=== PATIENT | male | born 1985 | race Caucasian/White ===

== ENCOUNTER 2018-04-09 17:20 | Emergency (ER) | payer OTHER ==
[2018-04-09 18:12] LABS: BASO % 0.1 % (0.0-1.0); EOS % 0.3 % (0.0-3.0); HEMATOCRIT 52.7 % (42.0-52.0); HEMOGLOBIN 18.3 g/dl (13.5-17.5); IMMATURE GRANULOCYTE % 0.3 % (0-3.0); LYMPH # 2.2 10^3/uL (1.5-4.5); LYMPH % 15.1 % (24.0-44.0); MEAN CORPUSCULAR HEMOGLOBIN 30.7 pg (27.0-33.0); MEAN CORPUSCULAR HGB CONC 34.7 g/dl (32.0-36.5); MEAN CORPUSCULAR VOLUME 88.4 fl (80.0-96.0); MONO # 1.1 10^3/uL (0.0-0.8); MONO % 7.5 % (0.0-5.0); NEUTROPHILS # 11.4 10^3/uL (1.8-7.7); NEUTROPHILS % 76.7 % (36.0-66.0); PLATELET COUNT, AUTOMATED 375 10^3/uL (150-450); RED BLOOD COUNT 5.96 10^6/uL (4.30-6.10); RED CELL DISTRIBUTION WIDTH 11.9 % (11.5-14.5); WHITE BLOOD COUNT 14.8 10^3/uL (4.0-10.0)
[2018-04-09 18:30] LABS: ALBUMIN 3.8 GM/DL (3.2-5.2); ALBUMIN/GLOBULIN RATIO 0.86 (1.00-1.93); ALKALINE PHOSPHATASE 64 U/L (45-117); ALT/SGPT 56 U/L (12-78); AMYLASE 35 U/L (25-115); ANION GAP 10 MEQ/L (8-16); AST/SGOT 22 U/L (7-37); BILIRUBIN,DIRECT 0.3 MG/DL (0.0-0.2); BILIRUBIN,TOTAL 0.7 MG/DL (0.2-1.0); BLOOD UREA NITROGEN 28 MG/DL (7-18); CALCIUM LEVEL 9.4 MG/DL (8.5-10.1); CARBON DIOXIDE LEVEL 31 MEQ/L (21-32); CHLORIDE LEVEL 97 MEQ/L (98-107); CREATININE FOR GFR 1.19 MG/DL (0.70-1.30); GLOMERULAR FILTRATION RATE > 60.0 (>60); GLUCOSE, FASTING 111 MG/DL (70-100); LIPASE 71 U/L (73-393); POTASSIUM SERUM 4.6 MEQ/L (3.5-5.1); SODIUM LEVEL 138 MEQ/L (136-145); TOTAL PROTEIN 8.2 GM/DL (6.4-8.2)
[2018-04-09] MEDS: ONDANSETRON 4MG/2ML VIAL (J2405) IV ×2 (18:33→20:13)
[2018-04-09] MEDS: MORPHINE 2 MG/ML 1ML SYRINGE (J2270) IV ×2 (18:33→20:14)
[2018-04-09] MEDS: NS 1,000 ML IV (18:37)
[2018-04-09 19:18] LABS: LACTIC ACID SEPSIS PROTOCOL 1.2 MMOL/L (0.4-2.0)
[2018-04-09] MEDS: GASTROGRAFIN SOLUTION 30ML (Q9963) PO ×3 (19:27→20:29)
[2018-04-09] MEDS ORDERED: ISOVUE-370 76% 100ML VIAL (Q9967) As Ordered (19:37)
[2018-04-09 20:20] LABS: AMORPHOUS SEDIMENT RFX SMALL (NEGATIVE); KETONE, URINE AUTO RFX 1+ mg/dL (NEGATIVE); LEUKOCYTE ESTERASE UR AUTO RFX NEGATIVE (NEGATIVE); MUCUS, URINE RFX LARGE (NEGATIVE); NITRITE, URINE AUTO RFX NEGATIVE (NEGATIVE); RBC, URINE AUTO RFX 1 /HPF (0-3); SPECIFIC GRAVITY UR AUTO RFX 1.034 (1.002-1.035); SQUAM EPITHELIAL CELL UR AURFX 0 /HPF (0-6); WBC, URINE AUTO RFX 1 /HPF (0-3)
[2018-04-09] MEDS: CIPROFLOXACIN 500 MG TAB PO (21:51)
[2018-04-09] MEDS: metroNIDAZOLE (FLAGYL) 500 MG TAB PO (21:51)
== END 2018-04-09 21:56 | disposition home or self-care (01) ==
LOC: M ED 17:20
DX: K52.9 Noninfective gastroenteritis and colitis, unspecified (principal); I10 Essential (primary) hypertension; F10.10 Alcohol abuse, uncomplicated; K21.9 Gastro-esophageal reflux disease without esophagitis; F17.200 Nicotine dependence, unspecified, uncomplicated
CPT/HCPCS: Q9963

== ENCOUNTER 2020-12-27 10:04 | Emergency (ER) | payer OTHER ==
[~2020-12-27] VITALS: Ht 177.8 cm; Wt 132.6 kg
[~2020-12-27 10:04] MED LIST: CIPR1TAB20 PO; FLAG500T PO; HYDR-3715 PO
[2020-12-27] MEDS ORDERED: OMEP20TA9 PO (10:13)
[2020-12-27] MEDS ORDERED: IBUP200C33 PO (10:13)
[2020-12-27] MEDS ORDERED: CHLORTHALIDONE 25 MG TAB PO ONE (10:50)
[2020-12-27] MEDS ORDERED: CHLO125TA PO (10:53)
[2020-12-27 11:28] VITALS: BP 167/95
--- NOTE | 2020-12-28 00:57 | ECGEPIP ---
[facility] - ED Test Date: 2020-12-27 Pat Name: BELINDA ESCAMILLA Department: Room: - Gender: Male [employer]: : 1985 Requested By: Nichole Jade Order Number: [id number] Reading MD: Shane Diaz Measurements Intervals [place] Rate: 89 P: 35 ME: 154 QRS: 25 QRSD: 96 T: 32 QT: 354 QTc: 430 Interpretive Statements Normal sinus rhythm POSSIBLE PRIOR INFERIOR INFARCT NO PRIORS FOR COMPARISON Electronically Signed on 12-28-2020 0:57:31 EDT by Shane Diaz
== END 2020-12-27 11:35 | disposition home or self-care (01) ==
LOC: M ED 10:04
DX: I10 Essential (primary) hypertension (principal); K21.9 Gastro-esophageal reflux disease without esophagitis; F17.200 Nicotine dependence, unspecified, uncomplicated

== ENCOUNTER → 2021-12-07 | Outpatient (CLI) | payer OTHER ==
[~2021-12-07] MED LIST changes: +CHLO125TA PO; +DOCU100C16 PO; +HYDR25SU23 PR; +IBUP200C33 PO; +LISI10TA22 PO; +MAG100TA PO; +OMEP20TA2 PO; +POTA10CA32 PO
== END ==
LOC: M LABSMTC 10:36
PROVIDERS: ATTEND Anesthesiology
DX: Z01.812 Encounter for preprocedural laboratory examination (principal); Z20.822 Contact with and (suspected) exposure to COVID-19

== ENCOUNTER 2021-12-12 08:09 | Day surgery (SDC) | payer OTHER ==
[~2021-12-12] VITALS: Ht 177.8 cm; Wt 98.9 kg
[~2021-12-12 08:09] MED LIST changes: +NS 1,000 ML IV ONE
[2021-12-12] MEDS ORDERED: fentaNYL 100 MCG/2 ML INJECTION As Ordered ONE (09:26)
[2021-12-12] MEDS ORDERED: propofoL 500 MG/50 ML VIAL As Ordered ONE (09:28)
[2021-12-12] MEDS ORDERED: LIDOCAINE 2% 100MG/5ML SDV (FOR ANES.) As Ordered ONE (10:03)
[2021-12-12] MEDS ORDERED: propofoL 200 MG/20 ML VIAL As Ordered ONE (10:20)
[2021-12-12 11:03] VITALS: BP 130/77
== END 2021-12-12 11:05 | disposition home or self-care (01) ==
LOC: M SDC 08:09
PROVIDERS: ATTEND Surgery
DX: K92.1 Melena (principal); K29.30 Chronic superficial gastritis without bleeding; K64.1 Second degree hemorrhoids; K29.80 Duodenitis without bleeding; K22.89 Other specified disease of esophagus; K21.9 Gastro-esophageal reflux disease without esophagitis; F41.9 Anxiety disorder, unspecified; I10 Essential (primary) hypertension; Z79.899 Other long term (current) drug therapy
CPT/HCPCS: 43239; 45378; 88305; J3010

== ENCOUNTER 2023-05-29 16:10 | Emergency (ER) | payer OTHER ==
[~2023-05-29] VITALS: Ht 177.8 cm; Wt 96.6 kg
[~2023-05-29 16:10] MED LIST changes: -HYDR25SU23 PR; +HYDR25SU61 PR; -NS 1,000 ML IV ONE; -POTA10CA32 PO; +POTA10CA60 PO
[2023-05-29 16:11] VITALS: TEMP 97.6
[2023-05-29] MEDS ORDERED: LORazepam 2 MG TAB PO PRN (18:10)
[2023-05-29] MEDS ORDERED: NS 1,000 ML IV ONE (18:10)
[2023-05-29 18:30] LABS: BASO % 0.3 % (0.0-1.0); EOS % 0.5 % (0.0-3.0); HEMATOCRIT 38.2 % (42.0-52.0); LYMPH # 1.8 10^3/uL (1.5-5.0); LYMPH % 23.2 % (24.0-44.0); MEAN CORPUSCULAR HEMOGLOBIN 32.8 pg (27.0-33.0); MEAN CORPUSCULAR VOLUME 96.5 fl (80.0-96.0); MONO % 13.1 % (2.0-8.0); NEUTROPHILS # 4.9 10^3/uL (1.5-8.5); NEUTROPHILS % 62.6 % (36.0-66.0); PLATELET COUNT, AUTOMATED 151 10^3/uL (150-450); RED BLOOD COUNT 3.96 10^6/uL (4.30-6.10); WHITE BLOOD COUNT 7.8 10^3/uL (4.0-10.0)
[2023-05-29 19:00] LABS: PHENCYCLIDINE URINE NEGATIVE (NEGATIVE)
[2023-05-29 19:01] LABS: AMPHETAMINES LEVEL URINE NEGATIVE (NEGATIVE); BARBITURATES URINE NEGATIVE (NEGATIVE); BENZODIAZEPINES URINE NEGATIVE (NEGATIVE); CANNABINOIDS URINE NEGATIVE (NEGATIVE); COCAINE METABOLITE URINE NEGATIVE (NEGATIVE); METHADONE URINE NEGATIVE (NEGATIVE); OPIATES URINE NEGATIVE (NEGATIVE)
[2023-05-29 19:02] LABS: ETHYL ALCOHOL (ETHANOL) < 0.003 % (0.000-0.010)
[2023-05-29 19:03] LABS: RSV AMPLIFICATION NEGATIVE (NEGATIVE)
[2023-05-29 19:03] LABS: ACETAMINOPHEN LEVEL < 2.0 UG/ML (10.0-20.0)
[2023-05-29 19:04] LABS: ALBUMIN 4.4 G/DL (3.2-5.2); ALKALINE PHOSPHATASE 39 U/L (46-116); ALT/SGPT 95 U/L (7.0-40); AST/SGOT 72 U/L (<34); BILIRUBIN,DIRECT 0.4 MG/DL (<0.4); BILIRUBIN,TOTAL 1.1 MG/DL (0.3-1.2); BLOOD UREA NITROGEN 43 MG/DL (9-23); CALCIUM LEVEL 10.1 MG/DL (8.5-10.1); CARBON DIOXIDE LEVEL 29 MMOL/L (20-31); CHLORIDE LEVEL 96 MMOL/L (98-107); CREATININE FOR GFR 2.05 MG/DL (0.70-1.30); GLOMERULAR FILTRATION RATE 38.7 (>60); GLUCOSE, FASTING 96 MG/DL (60-100); POTASSIUM SERUM 4.9 MMOL/L (3.5-5.1); SALICYLATE LEVEL < 3.0 MG/DL (<30); SODIUM LEVEL 136 MMOL/L (136-145)
[2023-05-29] MEDS ORDERED: OXAZEPAM 15MG CAP PO ONE (19:05)
[2023-05-29 19:06] LABS: THYROID STIMULATING HORMONE 3.253 uIU/ML (0.55-4.78)
[2023-05-29 19:08] LABS: CPK CREATINE PHOSPHOKINASE 151 U/L (46-171)
[2023-05-29 20:00] VITALS: BP 136/70; O2SAT 96
[2023-05-29] MEDS ORDERED: THIAMINE 100 MG TAB PO SCH (21:00)
[2023-05-29] MEDS ORDERED: OXAZ30CA2 PO ×2 (21:49→22:18)
[2023-05-29] MEDS ORDERED: OMEP1CAP73 PO (22:08)
[2023-05-29] MEDS ORDERED: CHLO25TA PO (22:08)
[2023-05-29] MEDS ORDERED: HOME MED LIST COMPLETE! XX SCH (22:10)
[2023-05-30] MEDS ORDERED: FOLIC ACID 1MG TAB PO SCH (09:00)
[2023-05-30] MEDS ORDERED: MULTIVITAMINS/MINERALS THERAP 1 TAB PO SCH (09:00)
== END 2023-05-29 22:40 | disposition left against medical advice (07) ==
LOC: M ED 16:10
DX: R79.9 Abnormal finding of blood chemistry, unspecified (principal); R86.0 Abnormal level of enzymes in specimens from male genital organs; N17.9 Acute kidney failure, unspecified; F10.20 Alcohol dependence, uncomplicated; Z53.9 Procedure and treatment not carried out, unspecified reason; I10 Essential (primary) hypertension; Z79.899 Other long term (current) drug therapy

== ENCOUNTER 2025-03-01 18:42 | Inpatient (IN) | payer OTHER ==
[~2025-03-01] VITALS: Ht 175.3 cm; Wt 104.4 kg
[~2025-03-01 18:42] MED LIST changes: +CHLO25TA PO; +OMEP-611 PO; +OMEP1CAP73 PO; -OMEP20TA2 PO; +OXAZ30CA2 PO; -POTA10CA60 PO; +POTA10CA70 PO
[2025-03-01] MEDS: NS (Normal Saline) 0.9% 1,000 ML IV ONE (19:50)
[2025-03-01 19:56] LABS: BASO % 0.1 % (0.0-1.0); HEMATOCRIT 46.3 % (42.0-52.0); LYMPH # 0.7 10^3/uL (1.5-5.0); LYMPH % 4.9 % (24.0-44.0); MEAN CORPUSCULAR HEMOGLOBIN 32.9 pg (27.0-33.0); MEAN CORPUSCULAR HGB CONC 34.6 g/dl (32.0-36.5); MEAN CORPUSCULAR VOLUME 95.3 fl (80.0-96.0); MONO # 0.6 10^3/uL (0.0-0.8); MONO % 4.1 % (2.0-8.0); NEUTROPHILS # 13.7 10^3/uL (1.5-8.5); NEUTROPHILS % 90.4 % (36.0-66.0); PLATELET COUNT, AUTOMATED 268 10^3/uL (150-450); RED BLOOD COUNT 4.86 10^6/uL (4.30-6.10); WHITE BLOOD COUNT 15.2 10^3/uL (4.0-10.0)
[2025-03-01] MEDS: ONDANSETRON 4MG 2ML VIAL IV ONE (20:15)
[2025-03-01] MEDS: LORazepam 2 MG/ML 1ML VIAL IV STA (20:16)
[2025-03-01] MEDS: ACETAMINOPHEN *IV* 1,000 MG in IV 1 EA IV ONE (20:17)
[2025-03-01 20:19] LABS: ETHYL ALCOHOL (ETHANOL) < 0.003 % (0.000-0.010); LIPASE 38 U/L (12-53)
[2025-03-01 20:30] LABS: ALBUMIN 4.4 G/DL (3.2-5.2); ALKALINE PHOSPHATASE 43 U/L (40-129); ALT/SGPT 86 U/L (7.0-40); AST/SGOT 69 U/L (<34); BILIRUBIN,DIRECT 0.4 MG/DL (<0.4); BILIRUBIN,TOTAL 0.9 MG/DL (0.3-1.2); BLOOD UREA NITROGEN 47 MG/DL (9-23); CALCIUM LEVEL 9.6 MG/DL (8.5-10.1); CARBON DIOXIDE LEVEL 19 MMOL/L (20-31); CHLORIDE LEVEL 95 MMOL/L (98-107); CREATININE FOR GFR 4.67 MG/DL (0.70-1.30); GLOMERULAR FILTRATION RATE 15.3 (>60); GLUCOSE, FASTING 135 MG/DL (60-100); POTASSIUM SERUM 4.8 MMOL/L (3.5-5.1); SODIUM LEVEL 137 MMOL/L (136-145)
[2025-03-01] MEDS ORDERED: LISI20TA33 PO (20:45)
[2025-03-01] MEDS ORDERED: NALT50TA4 PO (20:46)
[2025-03-01] MEDS: [UNRECOGNIZED DRUG - OTHER] IV ONE (21:10)
[2025-03-01] MEDS: NS 0.9% IV ONE (21:10)
[2025-03-01] MEDS: PIPERACILLIN/TAZOBACTAM SOD 4.5 GM in DEXTROSE 5% (D5W) ADV/MINI-BAG 50 ML IV ONE (21:10)
[2025-03-01] MEDS ORDERED: HOME MED LIST COMPLETE! XX SCH (21:15)
[2025-03-01 21:44] LABS: VENOUS HCO3 15.7 MMOL/L (23.0-27.0); VENOUS O2 SATURATION 88.4 % (60.0-80.0); VENOUS PARTIAL PRESSURE CO2 34.5 mmHg (38.0-50.0); VENOUS PARTIAL PRESSURE O2 63.4 mmHg (30.0-50.0); VENOUS PH 7.277 UNITS (7.330-7.430); VENOUS STANDARD HCO3 16.5 MMOL/L; VENOUS TOTAL CO2 16.8 MMOL/L (24.0-28.0)
[2025-03-01 23:12] LABS: ACETONE/KETONE 4.22 MMOL/L (0.02-0.27)
[2025-03-01 23:56] LABS: KETONE, URINE AUTO RFX TRACE mg/dL (NEGATIVE); MUCUS, URINE RFX SMALL (NEGATIVE); NITRITE, URINE AUTO RFX NEGATIVE (NEGATIVE); RBC, URINE AUTO RFX 2 /HPF (0-3); SQUAM EPITHELIAL CELL UR AURFX 1 /HPF (0-6); WBC, URINE AUTO RFX 3 /HPF (0-3)
[2025-03-01 23:59] LABS: LEUKOCYTE ESTERASE UR AUTO RFX TRACE (NEGATIVE)
[2025-03-02] MEDS ORDERED: HEPARIN SOD 5000UNITS/ML 1ML VIAL/SYRINGE SC SCH (00:10)
[2025-03-02] MEDS ORDERED: LORazepam 2 MG TAB PO PRN ×2 (00:10→00:30)
[2025-03-02] MEDS ORDERED: ACETAMINOPHEN 325 MG TAB PO PRN ×2 (00:10→00:30)
[2025-03-02] MEDS ORDERED: ONDANSETRON 4MG 2ML VIAL IV PRN (00:40)
[2025-03-02] MEDS: NS (Normal Saline) 0.9% 1,000 ML IV SCH ×2 (01:02→11:36)
[2025-03-02] MEDS: NS (Normal Saline) 0.9% 1,000 ML IV ONE (03:52)
[2025-03-02] MEDS: PIPERACILLIN/TAZOBACTAM SOD 4.5 GM in DEXTROSE 5% (D5W) ADV/MINI-BAG 50 ML IV SCH (04:06)
[2025-03-02] MEDS: HEPARIN SOD 5000UNITS/ML 1ML VIAL/SYRINGE SC SCH (05:41)
[2025-03-02] MEDS: MULTIVITAMINS/MINERALS THERAP 1 TAB PO SCH (07:29)
[2025-03-02] MEDS: DOCUSATE SODIUM 100MG CAPSULE PO SCH (07:29)
[2025-03-02] MEDS: THIAMINE 100 MG TAB PO SCH (07:29)
[2025-03-02] MEDS: OMEPRAZOLE 20MG CAP PO SCH (07:29)
[2025-03-02] MEDS: FOLIC ACID 1MG TAB PO SCH (07:29)
[2025-03-02 08:01] LABS: BASO % 0.1 % (0.0-1.0); EOS % 0.3 % (0.0-3.0); HEMATOCRIT 32.5 % (42.0-52.0); LYMPH # 1.1 10^3/uL (1.5-5.0); LYMPH % 11.7 % (24.0-44.0); MEAN CORPUSCULAR HEMOGLOBIN 32.3 pg (27.0-33.0); MEAN CORPUSCULAR HGB CONC 34.2 g/dl (32.0-36.5); MEAN CORPUSCULAR VOLUME 94.5 fl (80.0-96.0); MONO # 1.1 10^3/uL (0.0-0.8); MONO % 11.1 % (2.0-8.0); NEUTROPHILS # 7.4 10^3/uL (1.5-8.5); NEUTROPHILS % 76.3 % (36.0-66.0); PLATELET COUNT, AUTOMATED 172 10^3/uL (150-450); RED BLOOD COUNT 3.44 10^6/uL (4.30-6.10); WHITE BLOOD COUNT 9.8 10^3/uL (4.0-10.0)
[2025-03-02 08:06] LABS: HEMOGLOBIN 11.1 g/dl (13.5-17.5)
[2025-03-02 08:23] LABS: ALBUMIN 3.2 G/DL (3.2-5.2); BILIRUBIN,TOTAL 0.6 MG/DL (0.3-1.2); CALCIUM LEVEL 7.4 MG/DL (8.5-10.1); CREATININE FOR GFR 3.39 MG/DL (0.70-1.30); GLOMERULAR FILTRATION RATE 22.4 (>60); TOTAL PROTEIN 5.9 G/DL (5.7-8.2)
[2025-03-02] MEDS: NALTREXONE 50 MG TAB PO SCH (08:45)
[2025-03-02] MEDS ORDERED: FOLIC ACID 1MG TAB PO SCH (09:00)
[2025-03-02] MEDS ORDERED: THIAMINE 100 MG TAB PO SCH (09:00)
[2025-03-02] MEDS ORDERED: MULTIVITAMINS/MINERALS THERAP 1 TAB PO SCH (09:00)
[2025-03-02] MEDS ORDERED: DOCUSATE SODIUM 100MG CAPSULE PO SCH (09:00)
[2025-03-02 09:30] VITALS: BP 107/54; TEMP 98.1; O2SAT 96
[2025-03-02] MEDS: MAG SULF 1GM/100ML (MAG RUN) 1 GM in IV 1 EA IV SCH (11:35)
[2025-03-02] MEDS: AZITHROMYCIN INJ 500 MG, VIAL MATE ADAPTER 1 EACH in NS 250 ML IV SCH (11:36)
[2025-03-02 12:18] VITALS: BP 118/55; TEMP 97.6; O2SAT 99
[2025-03-02] MEDS: OXAZEPAM 15MG CAP PO SCH (14:07)
[2025-03-02 16:23] VITALS: BP 135/83; TEMP 97.6; O2SAT 100
[2025-03-02] MEDS: LACTOBACILLUS ACIDOPHILUS CAP PO SCH (19:34)
[2025-03-02 20:12] VITALS: BP 130/72; TEMP 97.1; O2SAT 99
[2025-03-02 23:46] VITALS: BP 143/84; TEMP 97.1; O2SAT 100
[2025-03-03 04:16] VITALS: BP 128/69; TEMP 97.6; O2SAT 97
[2025-03-03 06:14] LABS: BASO % 0.2 % (0.0-1.0); EOS # 0.1 10^3/uL (0.0-0.5); EOS % 0.9 % (0.0-3.0); HEMOGLOBIN 10.5 g/dl (13.5-17.5); LYMPH # 1.3 10^3/uL (1.5-5.0); LYMPH % 20.1 % (24.0-44.0); MEAN CORPUSCULAR HEMOGLOBIN 32.5 pg (27.0-33.0); MEAN CORPUSCULAR HGB CONC 33.9 g/dl (32.0-36.5); MONO # 0.6 10^3/uL (0.0-0.8); MONO % 8.6 % (2.0-8.0); NEUTROPHILS # 4.5 10^3/uL (1.5-8.5); NEUTROPHILS % 69.9 % (36.0-66.0); PLATELET COUNT, AUTOMATED 171 10^3/uL (150-450); RED BLOOD COUNT 3.23 10^6/uL (4.30-6.10); WHITE BLOOD COUNT 6.4 10^3/uL (4.0-10.0)
[2025-03-03 06:40] LABS: CALCIUM LEVEL 8.1 MG/DL (8.5-10.1); CREATININE FOR GFR 1.15 MG/DL (0.70-1.30); MAGNESIUM LEVEL 1.8 MG/DL (1.8-2.4); POTASSIUM SERUM 3.4 MMOL/L (3.5-5.1)
[2025-03-03 07:54] VITALS: BP 135/83; TEMP 97.9; O2SAT 97
[2025-03-03] MEDS: POTASSIUM CHLORIDE 10MEQ SR TABLET PO ONE (08:39)
[2025-03-03] MEDS ORDERED: ONDA-83 PO (08:56)
[2025-03-03] MEDS ORDERED: AZIT500T5 PO (08:56)
[2025-03-03] MEDS ORDERED: PROB250C PO (08:59)
[2025-03-03] MEDS ORDERED: OXAZ15CA4 PO (11:31)
== END 2025-03-03 12:52 | disposition home or self-care (01) | DRG 872 ==
LOC: M ED 18:42 → M ED INP 18:43 → M PCU 03-02 09:21 → OBSVTOIN 03-02 15:08
PROVIDERS: ADMIT Family Medicine; ATTEND Family Medicine
DX: A41.9 Sepsis, unspecified organism (principal); N17.9 Acute kidney failure, unspecified; E87.29 Other acidosis; K52.9 Noninfective gastroenteritis and colitis, unspecified; I10 Essential (primary) hypertension; K21.9 Gastro-esophageal reflux disease without esophagitis; F17.220 Nicotine dependence, chewing tobacco, uncomplicated; E83.42 Hypomagnesemia; E86.0 Dehydration; F10.20 Alcohol dependence, uncomplicated; Z79.899 Other long term (current) drug therapy